=== PATIENT | female | born 1970 | race Caucasian/White ===

== ENCOUNTER 2021-08-14 14:28 | Emergency (ER) | payer OTHER ==
[~2021-08-14] VITALS: Ht 160 cm; Wt 70.3 kg
[~2021-08-14 14:28] MED LIST: INTESTINEX1 CAP PO; LOSARTAN-HCTZ1 EACH; NORVASC5 MG; PROTONIX40 MG PO
[2021-08-14] MEDS ORDERED: VASOTEC10 MG (14:47)
== END 2021-08-14 18:12 | disposition home or self-care (01) ==
LOC: ER 14:28
DX: R09.81 Nasal congestion (principal); I10 Essential (primary) hypertension

== ENCOUNTER 2022-02-06 19:56 | Emergency (ER) | payer OTHER ==
[~2022-02-06] VITALS: Ht 160 cm; Wt 70.3 kg
[~2022-02-06 19:56] MED LIST changes: +VASOTEC10 MG
[2022-02-06] MEDS ORDERED: HYZAAR 50-12.51 EACH PO (20:11)
[2022-02-06] MEDS ORDERED: ONDANSETRON ODT8 MG PO (22:18)
[2022-02-06] MEDS ORDERED: PEPCID AC20 MG PO (22:18)
== END 2022-02-06 22:43 | disposition home or self-care (01) ==
LOC: ER 19:56
DX: B34.9 Viral infection, unspecified (principal); Z20.822 Contact with and (suspected) exposure to COVID-19